=== PATIENT | female | born 1935 | race Caucasian/White ===

== ENCOUNTER 2016-12-08 20:00 | Observation (INO) | payer OTHER ==
[2016-12-08] MEDS ORDERED: ATROPINE 0.1 MG/ML SOL ONE (20:15)
[2016-12-08] MEDS ORDERED: SODIUM CHLORIDE 0.9% 1000 ML SOL IV ONE (20:17)
[2016-12-08] MEDS ORDERED: ATROPINE 0.4 MG/ML SOL IV ONE (20:18)
[2016-12-08 20:20] LABS: BASOPHILS % (AUTO) 1 % (0-3); EOSINOPHILS % (AUTO) 2 % (0-9); HEMATOCRIT 38 % (35-47); MEAN CORPUSCULAR HGB CONC 35.2 gm/dl (32.0-36.0); MEAN CORPUSCULAR VOLUME 85 fL (81-99); NEUTROPHILS % (AUTO) 51.7 % (37-80)
[2016-12-08] MEDS ORDERED: POTASSIUM CHLORIDE 10 MEQ TER PO ONE (20:29)
[2016-12-08] MEDS ORDERED: POTASSIUM CHLORIDE IV ONE (20:29)
[2016-12-08] MEDS ORDERED: SODIUM CHLORIDE 0.9% IV ONE (20:29)
[2016-12-08] MEDS ORDERED: ONDANSETRON HCL 4 MG/2 ML SOL IM ONE (20:31)
[2016-12-08] MEDS ORDERED: POTASSIUM CHLORIDE 2 MEQ/ML SOL IV ONE ×2 (20:32→22:54)
[2016-12-08] MEDS ORDERED: POTASSIUM CHLORIDE 10 MEQ TER ONE (20:32)
[2016-12-08 20:35] LABS: ALBUMIN 3.8 gm/dl (3.4-5.0); ALT 27 IU/L (14-63); CALCIUM 9.4 mg/dl (8.5-10.1); GLOM FILT RATE 52 mL/min (>60); POTASSIUM 2.6 mMol/L (3.5-5.1); SODIUM 139 mMol/L (136-145)
[2016-12-08] MEDS ORDERED: ONDANSETRON HCL 4 MG/2 ML SOL ONE (20:47)
[2016-12-08] MEDS ORDERED: ALUMINUM/MAGNESIUM 30 ML SUS PO ONE (21:24)
[2016-12-08] MEDS ORDERED: LIDOCAINE HCL 2% (VISCOUS) 20 ML SOL MT ONE (21:24)
[2016-12-08] MEDS ORDERED: LIDOCAINE HCL 2% (VISCOUS) 20 ML SOL ONE (21:25)
[2016-12-08] MEDS ORDERED: ALUMINUM/MAGNESIUM 30 ML SUS ONE (21:25)
[2016-12-08] MEDS ORDERED: LORAZEPAM 0.5 MG TAB PO PRN (21:45)
[2016-12-08] MEDS: LEVETIRACETAM 250 MG TAB PO SCH (22:46)
[2016-12-08] MEDS: AMITRIPTYLINE 25 MG TAB PO SCH (22:48)
[2016-12-08] MEDS ORDERED: POTASSIUM CHLORIDE 2 MEQ/ML 40 MEQ, LIDOCAINE HCL 1% MDV 2 ML in SODIUM CHLORIDE 0.9% 5... IV ONE (23:00)
[2016-12-08] MEDS ORDERED: LIDOCAINE HCL 1% MPF SOL ONE (23:09)
[2016-12-09 07:24] LABS: CALCIUM 8.3 mg/dl (8.5-10.1); POTASSIUM 3.4 mMol/L (3.5-5.1)
[2016-12-09] MEDS ORDERED: NITROGLYCERIN 0.4 MG TAB SL PRN (07:35)
[2016-12-09] MEDS ORDERED: ASPIRIN 325 MG TAB PO ONE (07:36)
[2016-12-09] MEDS ORDERED: ASPIRIN 81 MG CHEWABLE CTB ONE (07:37)
[2016-12-09] MEDS ORDERED: NITROGLYCERIN 0.4 MG TAB SL ONE (07:37)
[2016-12-09] MEDS ORDERED: ASPIRIN 81 MG CHEWABLE CTB PO ONE (07:42)
[2016-12-09] MEDS ORDERED: MORPHINE SULFATE 10 MG/ML SOL IV ONE (08:09)
[2016-12-09] MEDS: ASPIRIN 325 MG TAB PO SCH (08:59)
[2016-12-09] MEDS ORDERED: CHOLECALCIFEROL 1,000 IU TAB PO SCH (09:00)
[2016-12-09] MEDS: LEVETIRACETAM 250 MG TAB PO SCH ×2 (09:00→21:56)
[2016-12-09] MEDS ORDERED: LACOSAMIDE 50 MG PO SCH (09:00)
[2016-12-09] MEDS: GEMFIBROZIL 600 MG TAB PO SCH (09:01)
[2016-12-09] MEDS: POTASSIUM CHLORIDE 10 MEQ TER PO SCH (09:01)
[2016-12-09] MEDS ORDERED: BIOTIN PO SCH (21:00)
[2016-12-09] MEDS ORDERED: FOLIC PO SCH (21:00)
[2016-12-09] MEDS ORDERED: CA PANTOTHENATE PO SCH (21:00)
[2016-12-09] MEDS: SODIUM CHLORIDE 0.9% FLUSH 10 ML SOL IV SCH (21:54)
[2016-12-09] MEDS: AMITRIPTYLINE 25 MG TAB PO SCH (21:55)
[2016-12-10] MEDS: SODIUM CHLORIDE 0.9% FLUSH 10 ML SOL IV SCH (05:42)
[2016-12-10 07:21] LABS: CALCIUM 8.6 mg/dl (8.5-10.1); POTASSIUM 3.8 mMol/L (3.5-5.1)
[2016-12-10 08:38] VITALS: BP 112/70; PULSE 58; RESP 20; TEMP 98.2; O2SAT 93
[2016-12-10] MEDS: LEVETIRACETAM 250 MG TAB PO SCH (08:45)
[2016-12-10] MEDS: ASPIRIN 325 MG TAB PO SCH (08:45)
[2016-12-10] MEDS: GEMFIBROZIL 600 MG TAB PO SCH (08:46)
[2016-12-10] MEDS: POTASSIUM CHLORIDE 10 MEQ TER PO SCH (08:46)
== END 2016-12-10 13:10 | disposition home or self-care (01) | DRG 313 ==
LOC: ED 20:00 → ACUTE CARE 21:22
PROVIDERS: ADMIT Emergency Medicine; ATTEND Emergency Medicine
DX: R07.9 Chest pain, unspecified (principal); R00.1 Bradycardia, unspecified; E87.6 Hypokalemia; E78.5 Hyperlipidemia, unspecified; Z82.49 Family history of ischemic heart disease and other diseases of the circulatory system; Z82.3 Family history of stroke
CPT/HCPCS: 36415; 71010; 80048; 80053; 83735; 84484; 85025; 93005; 93012; 94762; 96365; 96374; 96375; 99219; 99285; J0461; J2270; J2405; J3480; J2001

== ENCOUNTER 2017-01-14 13:15 | Emergency (ER) | payer OTHER ==
[2017-01-14] MEDS ORDERED: NITROGLYCERIN 0.4 MG TAB SL PRN (13:26)
[2017-01-14] MEDS ORDERED: SODIUM CHLORIDE 0.9% FLUSH 10 ML SOL IV PRN (13:26)
[2017-01-14 13:38] LABS: BASOPHILS % (AUTO) 1 % (0-3); EOSINOPHILS % (AUTO) 1 % (0-9); HEMATOCRIT 41 % (35-47); MEAN CORPUSCULAR HGB CONC 34.3 gm/dl (32.0-36.0); MEAN CORPUSCULAR VOLUME 89 fL (81-99); NEUTROPHILS % (AUTO) 71.4 % (37-80)
[2017-01-14] MEDS ORDERED: ATROPINE 0.1 MG/ML SOL ONE (13:38)
[2017-01-14] MEDS ORDERED: ATROPINE 0.1 MG/ML SOL IV ONE ×2 (13:38→13:47)
[2017-01-14] MEDS ORDERED: SODIUM CHLORIDE 0.9% 1000ML 1,000 ML IV ONE (13:40)
[2017-01-14] MEDS ORDERED: ONDANSETRON HCL 4 MG/2 ML SOL ONE (13:46)
[2017-01-14] MEDS ORDERED: ONDANSETRON HCL 4 MG/2 ML SOL IV ONE (13:49)
[2017-01-14] MEDS ORDERED: DOPAMINE PREMIX 400,000 MCG/250 ML SOL IV PRN (13:51)
[2017-01-14] MEDS ORDERED: POTASSIUM CHLORIDE 10 MEQ TER PO ONE (13:51)
[2017-01-14] MEDS ORDERED: POTASSIUM CHLORIDE 10 MEQ TER ONE (13:53)
[2017-01-14 13:59] LABS: ALBUMIN 3.7 gm/dl (3.4-5.0); ALT 79 IU/L (14-63); CALCIUM 9.2 mg/dl (8.5-10.1); GLOM FILT RATE 79 mL/min (>60); SODIUM 138 mMol/L (136-145)
[2017-01-14 14:01] LABS: POTASSIUM 2.9 mMol/L (3.5-5.1)
[2017-01-14 14:02] VITALS: TEMP 98.5
[2017-01-14 14:19] VITALS: RESP 20
[2017-01-14 15:03] VITALS: BP 104/61; PULSE 92; O2SAT 99
[2017-01-14 15:15] LABS: APPEARANCE,URINE Clear; BILIRUBIN,URINE NEGATIVE (NEGATIVE); COLOR,URINE Yellow; GLUCOSE, URINE (UA) NEGATIVE (NEGATIVE); KETONES,URINE NEGATIVE (NEGATIVE); LEUKOCYTE ESTERASE ,URINE NEGATIVE (NEGATIVE); NITRATE,URINE NEGATIVE (NEGATIVE); OCCULT BLOOD,URINE TRACE INTACT (NEG-TRACE); UROBILINOGEN,URINE 0.2 (0.2-1.0 EU)
[2017-01-14 15:26] LABS: RBC,URINE 0-2 (0-3AV/HPF); WBC,URINE 0-1 (0-5AV/HPF)
== END 2017-01-14 15:55 | disposition short-term general hospital (02) | DRG 392 ==
LOC: ED 13:15
DX: R10.10 Upper abdominal pain, unspecified (principal); I95.9 Hypotension, unspecified; R00.1 Bradycardia, unspecified; R07.9 Chest pain, unspecified; R55 Syncope and collapse; R74.0 Nonspecific elevation of levels of transaminase and lactic acid dehydrogenase [LDH]; E87.6 Hypokalemia
CPT/HCPCS: 71010; 71270; 74020; 74178; 80053; 81003; 82150; 82550; 83880; 84484; 85025; 85378; 85610; 93005; 99285; J0461; J2405; Q9967

== ENCOUNTER 2017-10-09 17:23 | Observation (INO) | payer OTHER ==
[2017-10-09] MEDS ORDERED: SODIUM CHLORIDE 0.9% 1000 ML SOL IV ONE (17:50)
[2017-10-09] MEDS: SODIUM CHLORIDE 0.9% FLUSH 10 ML SOL IV PRN (18:15)
[2017-10-09 18:27] LABS: BASOPHILS % (AUTO) 1 % (0-3); EOSINOPHILS % (AUTO) 3 % (0-9); HEMATOCRIT 42 % (35-47); HEMOGLOBIN 14.2 gm/dl (12.0-15.5); LYMPHOCYTES % (AUTO) 33.1 % (10-50); MEAN CORPUSCULAR HEMOGLOBIN 30.3 pg (27.0-32.0); MEAN CORPUSCULAR HGB CONC 33.6 gm/dl (32.0-36.0); MEAN CORPUSCULAR VOLUME 90 fL (81-99); MONOCYTES % (AUTO) 6.9 % (0-12); NEUTROPHILS % (AUTO) 56.5 % (37-80)
[2017-10-09 18:30] LABS: APPEARANCE,URINE Clear; BILIRUBIN,URINE NEGATIVE (NEGATIVE); COLOR,URINE Yellow; GLUCOSE, URINE (UA) NEGATIVE (NEGATIVE); KETONES,URINE NEGATIVE (NEGATIVE); LEUKOCYTE ESTERASE ,URINE NEGATIVE (NEGATIVE); NITRATE,URINE NEGATIVE (NEGATIVE); OCCULT BLOOD,URINE NEGATIVE (NEG-TRACE); UROBILINOGEN,URINE 0.2 (0.2-1.0 EU)
[2017-10-09 18:37] LABS: BACTERIA TRACE (< 1+); CRYSTALS NEGATIVE (0-3 AVE/HPF); EPITHELIAL CELLS 0-3 (SQUAMOUS); RBC,URINE NEGATIVE (0-3AV/HPF); WBC,URINE NEGATIVE (0-5AV/HPF)
[2017-10-09 18:49] LABS: BILIRUBIN,TOTAL 0.4 mg/dl (0.2-1.0); CALCIUM 9.4 mg/dl (8.5-10.1); CARBON DIOXIDE 28.7 mEq/L (21-32); CREATININE 0.76 mg/dl (0.60-1.00); POTASSIUM 3.7 mMol/L (3.5-5.1); THYROID STIMULATING HORMONE 3.002 uIU/ml (0.358-3.740); TOTAL PROTEIN 7.4 gm/dl (6.4-8.2)
[2017-10-09 18:51] LABS: ACETAMINOPHEN < 2 ug/ml (10-30); ALCOHOL < 0.003 gm/dl (0.000-0.08); SALICYLATE < 2.8 mg/dl (2.8-30.0)
[2017-10-09] MEDS ORDERED: SODIUM CHLORIDE 0.9% 500 ML SOL IV SCH (19:00)
[2017-10-09] MEDS ORDERED: ACETAMINOPHEN 325 MG PO PRN (19:40)
[2017-10-09 19:58] VITALS: RESP 18
[2017-10-09] MEDS ORDERED: LORAZEPAM 0.5 MG TAB PO SCH (21:00)
[2017-10-09] MEDS ORDERED: AMITRIPTYLINE 25 MG TAB PO SCH (21:00)
[2017-10-09] MEDS: LACOSAMIDE 50 MG PO SCH (22:26)
[2017-10-09] MEDS: LEVETIRACETAM 250 MG TAB PO SCH (22:26)
[2017-10-10] MEDS: SODIUM CHLORIDE 0.9% FLUSH 10 ML SOL IV PRN (00:15)
[2017-10-10 07:46] LABS: *PHENOBARBITAL < 1.1 mcg/ml (15.0-40.0)
[2017-10-10 08:16] VITALS: BP 119/77; PULSE 58; TEMP 97.8; O2SAT 94
[2017-10-10] MEDS ORDERED: FUROSEMIDE 20 MG TAB PO SCH (09:00)
[2017-10-10] MEDS ORDERED: GEMFIBROZIL 600 MG TAB PO SCH (09:00)
[2017-10-10] MEDS ORDERED: POTASSIUM CHLORIDE 10 MEQ TER PO SCH (09:00)
[2017-10-10] MEDS: LEVETIRACETAM 250 MG TAB PO SCH (09:59)
[2017-10-10] MEDS: LACOSAMIDE 50 MG PO SCH (10:00)
[2017-10-10 13:24] LABS: *KEPPRA LEVETIRACETEM 24.2 mcg/mL (12.0 - 46.0)
[2017-10-10] MEDS ORDERED: LORAZEPAM 0.5 MG TAB PO SCH (21:00)
== END 2017-10-10 16:20 | disposition home or self-care (01) | DRG 948 ==
LOC: ED 17:23 → UNDOADMOB 19:26 → ACUTE CARE 19:26
PROVIDERS: ADMIT Family Medicine; ATTEND Family Medicine
DX: R41.0 Disorientation, unspecified (principal); I67.9 Cerebrovascular disease, unspecified; R40.2362 Coma scale, best motor response, obeys commands, at arrival to emergency department; R40.2142 Coma scale, eyes open, spontaneous, at arrival to emergency department; R40.2242 Coma scale, best verbal response, confused conversation, at arrival to emergency department; R29.702 NIHSS score 2; R41.82 Altered mental status, unspecified; R41.3 Other amnesia
CPT/HCPCS: 70450; 70544; 70551; 71046; 80053; 80307; 81001; 82962; 84443; 85025; 93005; 93306; 96365; 99219; 99285; A9270-GY

== ENCOUNTER 2017-11-16 17:36 | Emergency (ER) | payer OTHER ==
[2017-11-16 17:54] LABS: BASOPHILS % (AUTO) 1 % (0-3); EOSINOPHILS % (AUTO) 3 % (0-9); HEMATOCRIT 39 % (35-47); HEMOGLOBIN 13.2 gm/dl (12.0-15.5); LYMPHOCYTES % (AUTO) 36.3 % (10-50); MEAN CORPUSCULAR HEMOGLOBIN 29.8 pg (27.0-32.0); MEAN CORPUSCULAR HGB CONC 33.6 gm/dl (32.0-36.0); MEAN CORPUSCULAR VOLUME 89 fL (81-99); MONOCYTES % (AUTO) 11.3 % (0-12); NEUTROPHILS % (AUTO) 48.3 % (37-80)
[2017-11-16 17:55] VITALS: TEMP 98.5
[2017-11-16 18:09] LABS: ALBUMIN 3.4 gm/dl (3.4-5.0); ALKALINE PHOSPHATASE 63 IU/L (46-116); ALT 20 IU/L (14-63); AST 21 IU/L (15-37); BILIRUBIN,TOTAL 0.3 mg/dl (0.2-1.0); BLOOD UREA NITROGEN 12 mg/dl (7-18); CALCIUM 8.8 mg/dl (8.5-10.1); CARBON DIOXIDE 29.1 mEq/L (21-32); CHLORIDE 102 mMol/L (98-107); CREATININE 0.82 mg/dl (0.60-1.00); GLOM FILT RATE 67 mL/min (>60); GLUCOSE 105 mg/dl (74-106); MAGNESIUM 1.9 mg/dl (1.8-2.4); POTASSIUM 3.8 mMol/L (3.5-5.1); SODIUM 138 mMol/L (136-145); TOTAL PROTEIN 6.6 gm/dl (6.4-8.2); TROP I < 0.017 ng/ml (0.000-0.056)
[2017-11-16] MEDS ORDERED: SODIUM CHLORIDE 0.9% 500 ML 500 ML IV SCH (18:30)
[2017-11-16 19:05] VITALS: BP 106/66; PULSE 48; RESP 20; O2SAT 96
== END 2017-11-16 19:17 | disposition short-term general hospital (02) | DRG 310 ==
LOC: ED 17:36
DX: R00.1 Bradycardia, unspecified (principal)
CPT/HCPCS: 80053; 83735; 84484; 85025; 93005; 96365; 99283; 99285

== ENCOUNTER 2018-06-28 14:24 | Emergency (ER) | payer OTHER ==
[2018-06-28] MEDS ORDERED: ASPIRIN 81 MG CHEWABLE CTB PO STA (14:28)
[2018-06-28] MEDS ORDERED: SODIUM CHLORIDE 0.9% FLUSH 10 ML SOL IV PRN (14:28)
[2018-06-28] MEDS ORDERED: NITROGLYCERIN 0.4 MG TAB SL PRN (14:28)
[2018-06-28] MEDS ORDERED: ASPIRIN 81 MG CHEWABLE CTB ONE (14:46)
[2018-06-28 14:47] LABS: BASOPHILS % (AUTO) 1 % (0-3); EOSINOPHILS % (AUTO) 3 % (0-9); HEMATOCRIT 41 % (35-47); HEMOGLOBIN 13.3 gm/dl (12.0-15.5); LYMPHOCYTES % (AUTO) 26.9 % (10-50); MEAN CORPUSCULAR HEMOGLOBIN 29.4 pg (27.0-32.0); MEAN CORPUSCULAR HGB CONC 32.6 gm/dl (32.0-36.0); MEAN CORPUSCULAR VOLUME 90 fL (81-99); MONOCYTES % (AUTO) 7.7 % (0-12); NEUTROPHILS % (AUTO) 60.9 % (37-80)
[2018-06-28 14:59] LABS: INR 1.04 (0.86-1.12)
[2018-06-28 15:00] LABS: BLOOD UREA NITROGEN 11 mg/dl (7-18); CALCIUM 9.2 mg/dl (8.5-10.1); CARBON DIOXIDE 27.4 mEq/L (21-32); CHLORIDE 104 mMol/L (98-107); CREATINE KINASE 58 U/L (26-192); CREATININE 0.74 mg/dl (0.60-1.00); GLUCOSE 107 mg/dl (74-106); SODIUM 140 mMol/L (136-145); TROP I < 0.017 ng/ml (0.000-0.056)
[2018-06-28 15:50] VITALS: TEMP 97.3
[2018-06-28 19:25] VITALS: BP 140/97; PULSE 62; RESP 25; O2SAT 93
== END 2018-06-28 19:09 | disposition home or self-care (01) | DRG 313 ==
LOC: ED 14:24
DX: R07.9 Chest pain, unspecified (principal); I10 Essential (primary) hypertension
CPT/HCPCS: 36415; 71045; 80048; 82550; 84484; 85025; 85610; 85730; 93005; 99284; 99285